=== PATIENT | female | born 2000 | race Caucasian/White ===

== ENCOUNTER → 2018-01-12 | Outpatient (CLI) | payer BC ==
--- NOTE | 2018-01-12 17:46 | XR ---
EXAMINATION TYPE: XR lumbosacral spine min 4V DATE OF EXAM: 01/12/2018 COMPARISON: NONE HISTORY: Low back pain TECHNIQUE: Five-view lumbar spine FINDINGS: There is a scoliosis in the frontal projection. There 5 lumbar-type vertebral bodies. The p edicles are intact. Disc heights are preserved. Vertebral body heights are preserved. Sagittal views appears unremarkable. Facets are normal. IMPRESSION: 1. Scoliosis
== END | disposition home or self-care (01) ==
LOC: RADXRYALE 16:08
PROVIDERS: ATTEND Physician Assistant Medical
DX: M41.86 Other forms of scoliosis, lumbar region (principal)
CPT/HCPCS: 72110